=== PATIENT | female | born 1960 | race Caucasian/White ===

== ENCOUNTER 2020-05-22 22:02 | Emergency (ER) | payer MEDICARE ==
[~2020-05-22 22:02] MED LIST: AMOXICILLIN500 MG PO; ASPIR-LOW81 MG PO; BACLOFEN10 MG PO; BUPROPION XL150 MG PO; CALTRATE 600 +1 EACH PO; CLARITIN10 MG PO; COREG 3.125M3.125 MG PO; CYMBALTA60 MG PO; DULOXETINE HCL60 MG PO; ESTRADIOL0.5 MG PO; FISH OIL 1,2001 EAC1 PO; GLUCOPHAGE1000 MG PO; HYDROXYZINE PAM25 MG PO; JANUVIA100 MG PO; LANTUS SOL100 UNIT/1 SQ; LISINOPRIL10 MG PO; LOVENOX SY30 MG/0.3 SQ; METFORMIN HCL1000 MG PO; MIRTAZAPINE7.5 MG PO; MULTI FOR HER1 EACH PO; NEURONTIN 300300 MG PO; NORCO 5-325 TA1 EACH PO; NORCO 7.5-3251 EACH PO; NOVOLOG FL100 UNIT/1 SQ; STOOL SOFTENER100 M1 PO; SYNTHROID137 MCG PO; TRAZODONE HCL50 MG PO; TRESIBA FL100 UNIT/1 SQ; VASCEPA1 GM PO
== END 2020-05-23 08:13 | disposition home or self-care (01) ==
LOC: ER1 22:02
DX: S01.01XA Laceration without foreign body of scalp, initial encounter (principal); I10 Essential (primary) hypertension; E11.9 Type 2 diabetes mellitus without complications; Z23 Encounter for immunization; M25.521 Pain in right elbow; W01.10XA Fall on same level from slipping, tripping and stumbling with subsequent striking against unspecified object, initial encounter
CPT/HCPCS: 12001; 70450; 71045; 71250; 72125; 72128; 73080; 90471; 90714; 90715; 99284

== ENCOUNTER → 2020-07-08 | Outpatient (CLI) | payer MEDICARE ==
[2020-07-08 09:30] LABS: HEMOGLOBIN 13.7 gm/dl (12.3-15.3); RED BLOOD COUNT 4.48 M/UL (4.00-5.10); WHITE BLOOD COUNT 5.7 K/UL (4.5-11.0)
[2020-07-08 10:05] LABS: BUN/CREATININE RATIO 21 (0-10)
== END ==
LOC: MAMO 08:30
PROVIDERS: Nurse Practitioner Primary Care
DX: E11.9 Type 2 diabetes mellitus without complications (principal); M51.9 Unspecified thoracic, thoracolumbar and lumbosacral intervertebral disc disorder; K75.81 Nonalcoholic steatohepatitis (NASH); K90.0 Celiac disease; R19.09 Other intra-abdominal and pelvic swelling, mass and lump; Z78.0 Asymptomatic menopausal state
CPT/HCPCS: 36415; 77080; 80053; 80061; 83036; 84443; 85025

== ENCOUNTER → 2020-08-03 | Outpatient (CLI) | payer MEDICARE | LOC: MAMO 14:06 | DX: Z12.31 Encounter for screening mammogram for malignant neoplasm of breast (principal); E11.9 Type 2 diabetes mellitus without complications; K75.81 Nonalcoholic steatohepatitis (NASH); R19.09 Other intra-abdominal and pelvic swelling, mass and lump | CPT/HCPCS: 77063; 77067 ==

== ENCOUNTER → 2021-03-10 | Outpatient (CLI) | payer MEDICARE ==
[2021-03-10 15:17] LABS: HEMOGLOBIN 13.9 gm/dl (12.3-15.3); RED BLOOD COUNT 4.55 M/UL (4.00-5.10); WHITE BLOOD COUNT 5.7 K/UL (4.5-11.0)
[2021-03-10 15:48] LABS: BUN/CREATININE RATIO 15 (0-10)
== END ==
LOC: LAB 13:47
PROVIDERS: Nurse Practitioner Primary Care
DX: E11.9 Type 2 diabetes mellitus without complications (principal); M51.9 Unspecified thoracic, thoracolumbar and lumbosacral intervertebral disc disorder; K75.81 Nonalcoholic steatohepatitis (NASH); K90.0 Celiac disease; N39.41 Urge incontinence
CPT/HCPCS: 36415; 80053; 80061; 80307; 82043; 83036; 84443; 85025